=== PATIENT | male | born 1980 | race Caucasian/White ===

== ENCOUNTER 2017-11-30 14:15 | Observation (INO) | payer OTHER, SELFPAY ==
[2017-11-30 14:25] VITALS: BMI 28.7
[2017-11-30 14:28] VITALS: BMI 28.7
[2017-11-30 14:33] VITALS: BP 141/84; PULSE 72; RESP 20; TEMP 36.9; O2SAT 100
[2017-11-30] MEDS: Ketorolac 15 MG/ML Vial IV ×2 (15:17→21:32)
[2017-11-30] MEDS: Cefazolin 1 GM/50 ML BAG IV ×2 (15:23→21:32)
[2017-11-30] MEDS: Ondansetron 4 MG/2 ML Vial IV (15:30)
[2017-11-30] MEDS: Morphine 4 MG/ML Syringe 2 MG IV ×3 (15:31→22:04)
[2017-11-30] MEDS: 0.9% NaCl Peripheral Flush Adult/Peds IV (15:34)
--- NOTE | 2017-11-30 17:03 | PCM.HP.STD ---
Problem List (1) Ureter, calculus Status: Acute History of Present Illness Date of Admission: 11/30/17 Chief Complaint: left ureteral calculi The patient is a 37 year old Male presented to office in severe pain from 3mm stone in left ureter admitted for pain control Past Medical History Allergies No Known Allergies Allergy (Verified 11/30/17 14:26) Home Medications: Ambulatory Orders Medication Instructions Recorded Hydrocodone/Acetaminophen 1 tab PO Q4H PRN 11/30/17 [Hydrocodone-Acetamin 5-325 mg] Surgical History: no surgical history Psychiatric History: No pertinent psych hx Lives: Spouse/ Significant Other Smoking Status: Former smoker Tobacco Use: Non-smoker Alcohol: None Drugs: None - *Family History Maternal History Items: No pertinent history Review of Systems Constitutional: Reports: Chills, Fever. Denies: Weight Change HEENT: Denies: Head Aches, Sinus Congestion, Sinus Drainage Cardiovascular: Denies: Chest Pain, Palpitations Respiratory: Denies: Cough, Shortness of breath at rest, Sputum production Gastrointestinal: Reports: Abdominal Pain. Denies: Nausea, Vomiting Genitourinary: Denies: Dysuria Musculoskeletal: Denies: Joint Pain, Joint Tenderness Skin: Denies: Rash, Wounds Neurological: Denies: Numbness, Tingling, Focal weakness Psychiatric: Denies: Anxiety, Depression, Homicidal Ideations, Suicidal Ideations Hematologic/ Lymphatic: Denies: Easy Bruising, Easy Bleeding VTE Information - Inpt Only VTE Present on Admission: No VTE Mechan Device Prophylaxis: SCD's Patient Problems: Active and Suspected Problems Ureter, calculus (Acute) - Physical Exam General: Alert, Oriented x3, Cooperative HEENT: Atraumatic, PERRLA, EOMI, Normocephalic Neck: Supple, No JVD, Negative Carotid Bruits Lungs: Clear to auscultation, Normal air movement Cardiovascular: Regular rate, No murmurs Abdomen: Bowel Sounds Present, Soft, Non Tender Extremities: No edema, Capillary Refill Less than 3 Seconds Skin: No rashes, No breakdown Musculoskeletal: No Tenderness to Palpation of Joints or Extremities Neurological: Cranial nerves II-XII grossly intact Psych/Mental Status: Normal Affect, Appropriate Vital Signs Temp Pulse Resp BP Pulse Ox 98.5 F 72 20 H 141/84 H 100 11/30/17 14:33 11/30/17 14:33 11/30/17 14:33 11/30/17 14:33 11/30/17 14:33 Oxygen Delivery Method Room Air Weight: 85.684 kg Body Mass Index (BMI) 28.7 Assessment/Plan Active and Suspected Problems Ureter, calculus (Acute) check kub in am if does not pass stone then plan for surgery.
[2017-11-30] MEDS: 0.9% Normal Saline 1,000 ML 100 ML IV (17:28)
[2017-11-30 19:35] VITALS: BP 132/73; PULSE 79; RESP 18; TEMP 36.9; O2SAT 98
[2017-12-01] VITALS (10 sets, daily range): BP systolic 113–148; BP diastolic 69–94; PULSE 63–76; RESP 14–18; TEMP 36.6–37.3; O2SAT 96–100
[2017-12-01] MEDS: Morphine 4 MG/ML Syringe 2 MG IV ×4 (02:33→14:02)
[2017-12-01] MEDS: 0.9% Normal Saline 1,000 ML 100 ML IV ×2 (02:34→11:54)
[2017-12-01] MEDS: Cefazolin 1 GM/50 ML BAG IV ×2 (05:05→14:02)
--- NOTE | 2017-12-01 06:00 | RAD_ITS ---
STUDY: X-RAY - ABDOMEN/PELVIS REASON FOR EXAM: Male, 37 years old. LT SIDED KIDNEY STONE TECHNIQUE: Two AP supine views of the abdomen and pelvis. COMPARISON: None. FINDINGS: Normal visualized lung bases. There is an unremarkable bowel gas pattern. There is no demonstrated free abdominal air. The visualized liver, spleen and kidneys are grossly normal in size and morphology. The left kidney stone is not identified on this study. Normal soft tissue structures. Normal visualized osseous structures. RAD/Abdomen Single View IMPRESSION: Normal x-ray examination of the abdomen and pelvis. Electronically Signed: Sophia Mata MD at 9:52 EDT Tel , Service support ,
[2017-12-01] MEDS: Ketorolac 15 MG/ML Vial IV ×2 (06:39→18:34)
[2017-12-01] MEDS: 0.9% NaCl Peripheral Flush Adult/Peds IV ×2 (14:02→18:34)
--- NOTE | 2017-12-01 15:50 | CALC_PTH ---
PATIENT: MALVIN SPENCE II LOC: MS3 U#:[id number] AGE/SX: 37/M ROOM: IN315 RE11/30/[address]: Dr. Nicko Dawson MD : 1980 BED: 1 DIS: 12/01/2017 SPEC #: [id number] RECD: 12/04/17 09:21 STATUS: GAURAV CHANTEL #: [id number] MATA: 12/01/17 15:[address]: Nicko Dawson DEPT: SURGICAL PATHOLOGY RECD BY: Rosendo Walsh Tissues: CALCULI Procedures: Surgery Specimen Level I HEADER OPERATION: Cysto, retro, stent, removal stone from bladder PRE-OP DIAGNOSIS: Passed stone TISSUE SUBMITTED: Calculi GROSS DIAGNOSIS A fragment of stone, clinically left ureteral calculus. SJ:bradford 12/04/17 COMMENT If chemical analysis is requested on this specimen, please notify the laboratory. GROSS DESCRIPTION Received in one container labeled with the patient's name and designated calculi. The specimen consists of a fragment of brown stone measuring 0.1 cm in greatest dimension. The specimen is for gross only. / KIET:bradford 12/04/17 CPT: 62617
--- NOTE | 2017-12-01 16:39 | PCM.DC.URO ---
Discharge Diet: Light diet - advance as tolerated Discharge Activity: May not drive while taking narcotic pain medications., May Shower Call your doctor if your incision/area has: Continuous Slow Oozing, Sudden Increased Bleeding, Increased Pain/ Swelling, Increased Redness, Foul Smelling Discharge, Swelling at the incision site Call your doctor if you observe: Fever of 101 or Higher, Uncontrolled pain Instructions: Treating Kidney Stones: Ureteroscopic Stone Removal, Ureteral Stents Allergies/Adverse Reactions: Allergies No Known Allergies Allergy (Verified 11/30/17 14:26) Medications to take at Discharge Hydrocodone/Acetaminophen [Hydrocodone-Acetamin 5-325 mg] 1 tab PO Q4H PRN 11/30/17 Ciprofloxacin [Cipro] 500 mg PO BID #10 tab 12/01/17 Docusate Sodium [Colace] 100 mg PO BID #20 cap 12/01/17 Ketorolac [Toradol] 10 mg PO Q6H PRN PRN 3 Days #10 tab 12/01/17 Oxycodone HCl/Acetaminophen [Percocet 5/325] 1 tab PO Q4H PRN PRN 5 Days #20 tab 12/01/17 The following prescriptions were given: Oxycodone HCl/Acetaminophen [Percocet 5/325] 1 tab PO Q4H PRN PRN 5 Days #20 tab PRN Reason: Pain Ketorolac [Toradol] 10 mg PO Q6H PRN PRN 3 Days #10 tab PRN Reason: Pain Ciprofloxacin [Cipro] 500 mg PO BID #10 tab Docusate Sodium [Colace] 100 mg PO BID #20 cap Please Follow Up With: Nicok Dawson MD When: MondayDecember 05 at 3:45 pm, to remove stent
--- NOTE | 2017-12-01 17:24 | OP.PCM_ITS ---
Problem List (1) Ureter, calculus Status: Acute Report of Operation Date of Procedure: 12/01/17 Pre-Operative Diagnosis: Left ureteral calculi causing severe pain obstruction and renal colic Post-Operative Diagnosis: Same Surgery/Procedure Performed:: Cystoscopy, left retrograde pyelogram, extraction of stone from the bladder, left stent placement Description of Surgical Findings:: 37-year-old male admitted to the hospital with severe renal colic in the left side from a very small stone x-ray in the morning really could not see the stone clearly. Finally in the afternoon took in the surgery because he was still having a lot of pain has not seen a stone. Taken back to the operating room after smooth induction of general anesthesia he was placed in dorsal lithotomy position penis and testicles were prepped and draped in usual sterile fashion went into the bladder with a 21 Faroese rigid cystourethroscope and identified the trigone, and then in the back of the bladder there was a stone fragment that was the same size as seen on CAT scan. This fragment was then evacuated from the bladder and removed and handed off as specimen. I then cannulated the left ureteral orifice with a Glidewire and a Pollack catheter injected contrast contrast is draining from the kidney however is draining fairly slowly a lot of inflammation so I decided to leave a stent on the left side to assist with drainage over the weekend. Over the wire advanced a stent once a stent was in good position I pulled the wire the stent coiled in the kidney and the bladder. Drain the bladder left the string of the stent for easy extraction and I will see the patient back next week for removal of the stent. Stone extracted was sent for analysis. Type of Anesthesia:: General Drains: stent - Admit VTE Documentation VTE Present on Admission: No VTE Mechan Device Prophylaxis: SCD's VTE Pharm Prophylaxis ordered?: No Reason prophylaxis not ordered:: Treatment Not Indicated
[2017-12-01] MEDS: Acetaminophen 325 MG Tablet 650 MG PO (19:58)
[2017-12-01] MEDS: oxyCODONE 5 MG Tablet PO (19:58)
== END 2017-12-01 21:10 | disposition home or self-care (01) ==
PROVIDERS: Admitting Provider Urology; Visit Provider Urology
PROC: 0TJ98ZZ Inspection of Ureter, Via Natural or Artificial Opening Endoscopic (ICD-10-PCS; CPT 52352; principal; 2017-12-01 15:40)
DX: N20.1 Calculus of ureter (principal); Z87.891 Personal history of nicotine dependence; K44.9 Diaphragmatic hernia without obstruction or gangrene
CPT/HCPCS: 00910; 52310; 74018; 76000; 88300; 96361; 96365; 96366; 96375; 96376; 99218; J7030; A4216; C1769; C2617; G0378; G0379; J2405

== ENCOUNTER 2025-06-13 12:04 | Day surgery (SDC) | payer OTHER, SELFPAY ==
[2025-06-13] VITALS (9 sets, daily range): BP systolic 123–135; BP diastolic 77–92; PULSE 74–92; RESP 12–16; TEMP 36.3–36.4; O2SAT 95–99; BMI 28.5
[2025-06-13] MEDS: Lactated Ringers 1,000 ML 15 ML IV (12:34)
--- NOTE | 2025-06-13 13:31 | PRE.ANES_ITS ---
ASA Classification* ASA Classification ASA Classification: 2 Assessment & Plan Anesthesia* Anesthesia Assessment Anesthesia Assessment: Discussed sedation and/or anesthesia options, risks, benefits, and alternatives with patient/parents/legal guardian/POA. Questions invited. The patient/parents/legal guardian/POA seems to understand and agrees to proceed with anesthesia plan. Reviewed the physical assessment, medical history, allergy history and patient home medications list prior to surgery/procedure/anesthetic and documented any changes. Performed airway and anesthesia risk assessments. Anesthesia Type Anesthesia Type: General History Source History Obtained from:: Patient and Chart Anesthesia Focused Assessment* Temperature: 97.6 F Pulse Rate: 92 Blood Pressure: 125/80 Respiratory Rate: 16 Pulse Ox: 96 Oxygen Delivery Method: Room Air Airway Assessment Mouth opens: >3 cm Mallampati Score: II Teeth Condition: Missing (Patient has several missing teeth. 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 When Was Last Pacemaker Check QUESTION #4 FULL TEXT: You/Your Family Experience fever (hyperthermia) with Anesthesia Last Oral Intake Last Oral intake: Last Oral Intake NPO since 07:00 06/13/25 12:26 Meds taken in AM with sips of No 06/13/25 12:26 water? Meds patient instructed to take am of surgery Any additional information?: Yes NPO since: 07:00 (Patient had black coffee at 7 AM.) Meds taken in AM with sips of water?: No PONV PONV - director of consumer marketing: PONV - director of consumer marketing Female No 06/06/25 09:42 HX of Motion Sickness Yes 06/06/25 09:42 HX of N/V After Surgery No 06/06/25 09:42 Non-Smoker Yes 06/06/25 09:42 Duration of Surgery greater No 06/06/25 09:42 than 60 minutes Number of Risk Factors 2 06/06/25 09:42 PONV Score Moderate Risk 06/06/25 09:42 Height & Weight Height & Weight: Anesthesia: Height & Weight Height 5 ft 8 in 06/13/25 12:26 Weight: 85 kg 06/13/25 12:26 Body Mass Index (BMI) 28.5 06/13/25 12:26 Respiratory Assessment Respiratory Assessment - director of consumer marketing: Respiratory Tract Infection Hx - director of consumer marketing Hx Respiratory Tract Infection No 06/06/25 09:42 STOP Sleep Apnea STOP Sleep Apnea - director of consumer marketing: STOP Sleep Apnea - director of consumer marketing Hx Hypertension No 06/06/25 09:42 Hx Sleep Apnea No 06/06/25 09:42 CPAP No 12/01/17 17:32 BIPAP No 11/30/17 17:29 Do you snore loudly (louder No 06/06/25 09:42 than talking or can be heard Do you often feel tired/ No 06/06/25 09:42 fatigued/ sleepy during daytime? Has anyone observed you stop No 06/06/25 09:42 breathing during sleep? STOP Results Negative 06/06/25 09:42 QUESTION #5 FULL TEXT : Do you snore loudly (louder than talking or can be heard through closed doors)? 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 Specify any problems Hx of Preganancy in last 3 N/A 06/06/25 09:42 Months Nurse Filling Out Transfusion DSCHRIBER 06/06/25 09:42 & Questions: Date: 06/06/25 06/06/25 09:42 Time: 09:42 06/06/25 09:42 Patient unable to answer at this time (ie. confused, unrespo /Reproduction History /Reproductive History - director of consumer marketing: /Reproductive Hx- director of consumer marketing Hx Now No 06/06/25 09:42 Gestational Age (in weeks): EDC: Hx Hx Para Hx Section SAB No 06/06/25 09:42 Does the father of the baby or his family experience fever w Father of the baby Malignant Hypertension history comment Active Medications Active Medications: Current Medications Generic Name Dose Route Start Last Admin Trade Name Freq PRN Reason Stop Dose Admin Lactated Ringer's 1,000 mls @ 15 mls/hr 06/13/25 12:15 06/13/25 12:34 IV 15 mls/hr .Q48H VIKTOR Administration PFSH Medical History Marijuana use Alcohol use Arthritis Back pain History of IBS Former smoker Home Medications Medication Instructions Recorded Last Taken Type oxycodone-acetaminophen 5 mg-325 1 tab PO Q4H PRN PRN Pain 5 days 12/01/17 Unknown Rx mg tablet #20 tabs loratadine 10 mg tablet (Claritin) 10 mg PO DAILY 02/21 Unknown History Allergy/AdvReac Type Severity Reaction Status Date / Time No Known Allergies Allergy Verified 06/13/25 12:25 Surgical History History of cystoscopy Hx of lithotripsy Social History Smoking Status: Former smoker Review of Systems (Anesthesia) ROS Narrative System reviewed and no additional complaints, except as documented.
[2025-06-13] MEDS: Cefazolin 1 GM/5 ML Vial 2 GM IV (15:12)
[2025-06-13] MEDS: Lidocaine 1% (5 ml sdv) 5 ML Vial IV (15:16)
[2025-06-13] MEDS: fentaNYL 100 MCG/2 ML Ampul 200 MCG IV (15:40)
[2025-06-13] MEDS: Ketorolac 30 MG/ML Syringe IV (15:42)
--- NOTE | 2025-06-13 15:43 | DCINST_ITS ---
Discharge Instructions DC O2, CPAP, BIPAP needs Home O2 Discharge instructions: No Dressing / Incision Discharge Activity: Return to Normal Activity and May Not Drive (while taking narcotic pain medications.) Dressing / Incision Call your doctor if you observe: Fever of 101 or Higher Follow Up Care Please Follow Up With: Nicko Dawson MD When: Call [phone] for an appointment Test Results: Test results from this visit will be discussed in further detail at your follow- up appointment, if applicable. Discharge Plan Admission Primary Reason for Your Visit: Ureteral calculi left Attending Provider: Nicko Dawson Primary Care Provider: Care Physician,Elsa Primary Instructions Print Language: Turkish Discharge Orders/Prescriptions Prescriptions: New tamsulosin [Flomax] 0.4 mg capsule 0.4 mg PO DAILY Qty: 14 0RF ciprofloxacin HCl 500 mg tablet 500 mg PO BID Qty: 10 0RF phenazopyridine [Pyridium] 100 mg tablet 100 mg PO TID Qty: 14 0RF oxycodone 5 mg tablet 5 mg PO Q6H PRN (Reason: pain) 3 Days Qty: 14 0RF No Action oxycodone-acetaminophen 1 TABLET tablet 1 tab PO Q4H PRN PRN (Reason: Pain) 5 Days Qty: 20 0RF loratadine [Claritin] 10 mg tablet 10 mg PO DAILY Referrals / Follow Up: Care Physician,No Primary [Primary Care Provider, Medical] Disposition Disposition (needs filled in before D/C Order can be placed): Home, Self Care
--- NOTE | 2025-06-13 15:43 | PCM.OPRPT ---
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 I discussed with the patient how the surgery would be performed and we reviewed the risks and benefits of the surgery. The risk and benefits include the risk of failure to remove the stone completely and that the patient may need multiple procedures. We discussed the risk of an infection, the risk of bleeding. We discussed the very rare risk of serious complicated injury to the ureter. The patient understands that if the stone is not able to be removed safely that we may abort the procedure and place a stent. After full discussion and all questions address with the patient the consent form was signed the side was marked appropriately and the patient was taken back to the operating room for the procedure. The patient was taken back to the operating room. After induction of anesthesia by the anesthesiology team the patient was placed in dorsolithotomy position. The genitals were prepped and draped in usual sterile fashion. I went into the bladder with a 21 Swedish rigid cystourethroscope through the urethra. Upon entering the bladder I inspected the trigone the left and right ureteral orifice and the bladder itself. I then cannulated the left ureteral orifice and advanced a 0.038 Glidewire up into the kidney. I was able to go inside with the 7.5Fr utereroscope and I pulled out the guidewire and then through the ureteroscope I engage the stone with laser lithotripsy using a 270miron laser fiber with energy setting of 6 Hertz and 0.6 J until the stone was lasered into tiny little pieces that should pass on their own. A retrograde pyelogram was performed with 10cc of contrast and no extravasation of contrast or perforation was identified in the ureter there was some mild irritation of the ureter where the stone was located. I then backed out of the ureter left the wire in place and then over the 0.038 guidewire I placed a double coiled pigtail ureteral stent. The ureteral stent was advanced over the 0.038 guidewire under direct fluoroscopic guidance and direct cystoscopic visual guidance, once the stent was in good position I pulled the wire and the stent coiled in the kidney and bladder in good position. I then drained the patient's bladder and the cystoscope was removed and the patient was taken back to the recovery room in good position. The patient was given discharge instructions to call the office for instructions on when to come to the office to have the stent removed or remove the stent himself, since I left a long string. Surgical Findings: Stone lasered completely, significant edema so stent placed Complications Complications: No Admit VTE Documentation VTE Mechan Device Prophylaxis: SCD's VTE Pharm Prophylaxis ordered?: No
--- NOTE | 2025-06-13 15:56 | PCM.POST.ANE ---
Anesthesia: Postop Eval I Current Vital Signs Temperature: 97.4 F Pulse Rate: 85 Blood Pressure: 135/90 Respiratory Rate: 12 Pulse Ox: 95 Oxygen Delivery Method: Room Air Assessment Airway patent: Yes Spontaneous unlabored respirations: Yes Mental status: Awake and Calm nausea: No Vomiting: No Anesthesia Complication: No Fluid Hydration Crystalloid volume administer (ml): 900 Total IV fluid infused: 900 Progress Note Anesthesia document: Postop Eval 1 completed: Yes
--- NOTE | 2025-06-14 01:24 | POSTOPAN2_ITS ---
Anesthesia Postop Eval I Sum Postop Eval Completion status Anesthesia document: Postop Eval 1 completed: Yes Anesthesia Postop Eval I Summary Anesthesia Postop Eval I Summary: Anesthesia Postop Eval I: Assessment Summary Airway patent Yes 06/13/25 15:56 PRINCIPAL CONSULTING ENGINEER.SHOF Spontaneous unlabored Yes 06/13/25 15:56 PRINCIPAL CONSULTING ENGINEER.SHOF respirations Mental status Awake,Calm 06/13/25 15:56 PRINCIPAL CONSULTING ENGINEER.SHOF nausea No 06/13/25 15:56 PRINCIPAL CONSULTING ENGINEER.SHOF Vomiting No 06/13/25 15:56 PRINCIPAL CONSULTING ENGINEER.SHOF Anesthesia Postop Eval I: Fluid Summary Crystalloid volume administer 900 06/13/25 15:56 PRINCIPAL CONSULTING ENGINEER.SHOF (ml) Colloids volume administered ( ml) Blood Product volume administered (ml) Total IV fluid infused 900 06/13/25 15:56 PRINCIPAL CONSULTING ENGINEER.SHOF Anesthesia Postop Eval I: Summary Notes Anesthesia Complication No 06/13/25 15:56 PRINCIPAL CONSULTING ENGINEER.SHOF Anesthesia Complication Comment: Post-operative progress note Anesthesia: Postop Eval II Evaluation Mental status: Awake and Calm Pain Level: 1 nausea: No Vomiting: No Complications Anesthesia Complication: No
--- NOTE | 2025-06-14 01:24 | PCM.POSTANE2 ---
Anesthesia Postop Eval I Sum Postop Eval Completion status Anesthesia document: Postop Eval 1 completed: Yes Anesthesia Postop Eval I Summary Anesthesia Postop Eval I Summary: Anesthesia Postop Eval I: Assessment Summary Airway patent Yes 06/13/25 15:56 SAP SECURITY CONSULTANT.SHOF Spontaneous unlabored Yes 06/13/25 15:56 SAP SECURITY CONSULTANT.SHOF respirations Mental status Awake,Calm 06/13/25 15:56 SAP SECURITY CONSULTANT.SHOF nausea No 06/13/25 15:56 SAP SECURITY CONSULTANT.SHOF Vomiting No 06/13/25 15:56 SAP SECURITY CONSULTANT.SHOF Anesthesia Postop Eval I: Fluid Summary Crystalloid volume administer 900 06/13/25 15:56 SAP SECURITY CONSULTANT.SHOF (ml) Colloids volume administered ( ml) Blood Product volume administered (ml) Total IV fluid infused 900 06/13/25 15:56 SAP SECURITY CONSULTANT.SHOF Anesthesia Postop Eval I: Summary Notes Anesthesia Complication No 06/13/25 15:56 SAP SECURITY CONSULTANT.SHOF Anesthesia Complication Comment: Post-operative progress note Anesthesia: Postop Eval II Evaluation Mental status: Awake and Calm Pain Level: 1 nausea: No Vomiting: No Complications Anesthesia Complication: No
== END 2025-06-13 16:50 | disposition home or self-care (01) ==
PROVIDERS: Referring Provider Urology; Visit Provider Urology
DX: N20.1 Calculus of ureter (principal); Z87.891 Personal history of nicotine dependence
CPT/HCPCS: 52356; 00873; A4216; C1769; C2617; J2405